=== PATIENT | male | born 1950 | race Caucasian/White ===

== ENCOUNTER → 2018-09-20 | Emergency (ER) | payer OTHER ==
[~2018-09-20] VITALS: Ht 182.9 cm; Wt 81.6 kg
== END | disposition designated cancer center or children's hospital (05) ==
LOC: ER 08:56
DX: C79.82 Secondary malignant neoplasm of genital organs (principal); C79.51 Secondary malignant neoplasm of bone; C79.89 Secondary malignant neoplasm of other specified sites; D72.818 Other decreased white blood cell count; D69.49 Other primary thrombocytopenia; R55 Syncope and collapse; E86.0 Dehydration; I95.89 Other hypotension